=== PATIENT | male | born 1980 | race Caucasian/White ===

== ENCOUNTER 2017-04-16 10:35 | Outpatient (CLI) | payer BC ==
--- NOTE | 2017-04-16 15:07 | Diagnostic Imaging Report ---
Indication: Abdominal Pain Technique: Continuous helical transaxial imaging of the neck was obtained from the aortic arch to the skull base during rapid intravenous contrast administration. Arterial phase of enhancement obtained. Coronal 2-D reformats were also obtained and maximum intensity projection images in multiple planes. Study obtained in a Siemens sensation [address] Automatic Exposure Control was utilized. Total Dose length Product (DLP): [address] Dose Index Volume (CTDIvol): 0.17, 0.17, 16.5, 165.04, 54.93 mGy Comparison: None Findings: The internal carotid arteries demonstrate no stenosis or filling defects from the origin to the skull base. The common carotid arteries appear normal as visualized. Although there is considerable artifact involving the area of the thoracic inlet which involves the proximal segment of the common carotid arteries near their origin. That said, no obvious CCA stenosis or thrombosis identified. The vertebral arteries are unremarkable. IMPRESSION: Negative CTA of the neck. Artifact at the thoracic inlet limiting evaluation of the aortic arch and proximal carotid/vertebral anatomy. The CT scanner at [facility] is accredited by the [employer] and the scans are performed using dose optimization techniques as appropriate to a performed exam including Automatic Exposure control.
== END 2017-04-16 12:35 | disposition home or self-care (01) ==
LOC: CAT 10:35
DX: I65.29 Occlusion and stenosis of unspecified carotid artery (principal); R10.9 Unspecified abdominal pain
CPT/HCPCS: 70498; Q9967